=== PATIENT | male | born 1980 | race Caucasian/White ===

== ENCOUNTER 2021-07-12 17:38 | Outpatient (REF) | payer BC, SELFPAY ==
[2021-07-14 16:39] LABS: COVID-19 RT-PCR UVMMC Result Positive (Negative)
== END 2021-07-12 17:39 | disposition home or self-care (01) ==
LOC: NCHCN 17:38
PROVIDERS: PCP Nurse Practitioner; Visit Provider Registered Nurse
DX: Z20.822 Contact with and (suspected) exposure to COVID-19 (principal); J06.9 Acute upper respiratory infection, unspecified
CPT/HCPCS: U0003

== ENCOUNTER 2021-08-23 16:53 | Outpatient (REF) | payer BC, SELFPAY ==
[2021-08-23 14:18] LABS: HCT 43.2 % (40.0-50.0); HGB 14.8 g/dL (13.5-17.5); MCH 31.2 pg (27.0-33.0); MCHC 34.3 % (32.0-36.0); MCV 90.9 fL (80-95); MPV 10.3 fL (8.0-11.0); Platelet Count 238 10^3/uL (130-400); RBC 4.75 10^6/uL (4.36-5.78); RDW 12.3 % (11.8-14.1); RDW-SD 40.9 fL; WBC 7.49 10^3/uL (4.4-10.8)
[2021-08-23 14:29] LABS: ALT 25 U/L (16-63); Albumin 4.1 g/dL (3.4-5.0); Alkaline Phosphatase 91 U/L (46-116); Anion Gap 9.9 mmol/L (3-11); BUN 15 mg/dL (7-18); Bilirubin, Total 0.3 mg/dL (0.2-1.0); CO2 26.1 mmol/L (21.0-32.0); CREATININE 0.9 mg/dL (0.70-1.30); Calcium 8.4 mg/dL (8.5-10.1); Chloride 103 mmol/L (98-107); Cholesterol 186 mg/dL (<200); Glucose 145 mg/dL (74-106); HDL Cholesterol 30 mg/dL (40-60); Sodium 139 mmol/L (136-145); Total Protein 7.3 g/dL (6.4-8.2); Triglyceride 474 mg/dL (<150)
[2021-08-23 14:40] LABS: LDL CHOLESTEROL 112 mg/dL (<100)
[2021-08-23 14:50] LABS: AST 15 U/L (15-37)
== END 2021-08-23 16:54 | disposition home or self-care (01) ==
LOC: NCHCN 16:53
PROVIDERS: PCP Nurse Practitioner; Visit Provider Registered Nurse
DX: R63.5 Abnormal weight gain (principal); R10.13 Epigastric pain; R07.89 Other chest pain; Z72.89 Other problems related to lifestyle
CPT/HCPCS: 80053; 80061; 83721; 85027

== ENCOUNTER 2021-09-19 10:33 | Outpatient (REF) | payer BC, SELFPAY ==
[2021-09-19 18:06] LABS: Calcium 9.8 mg/dL (8.5-10.1)
[2021-09-23 11:37] LABS: Parathyroid Hormone,Intact 26 pg/mL (19-88)
== END 2021-09-19 10:34 | disposition home or self-care (01) ==
LOC: NCHCN 10:33
PROVIDERS: PCP Nurse Practitioner; Visit Provider Registered Nurse
DX: E83.51 Hypocalcemia (principal)
CPT/HCPCS: 82310; 83970

== ENCOUNTER 2022-03-12 17:57 | Outpatient (REF) | payer BC, SELFPAY ==
[2022-03-12 21:40] LABS: HCT 44.6 % (40.0-50.0); HGB 15.7 g/dL (13.5-17.5); MCH 31.3 pg (27.0-33.0); MCHC 35.2 % (32.0-36.0); MCV 89 fL (80-95); MPV 10.1 fL (8.0-11.0); Platelet Count 218 10^3/uL (130-400); RBC 5.01 10^6/uL (4.36-5.78); RDW 11.9 % (11.8-14.1); RDW-SD 38.6 fL; WBC 9.46 10^3/uL (4.4-10.8)
[2022-03-12 21:48] LABS: ALT 25 U/L (16-63); AST 16 U/L (15-37); Albumin 4.1 g/dL (3.4-5.0); Alkaline Phosphatase 67 U/L (46-116); BUN 11 mg/dL (7-18); Bilirubin, Total 0.4 mg/dL (0.2-1.0); CREATININE 0.8 mg/dL (0.70-1.30); Calcium 9.4 mg/dL (8.5-10.1); Chloride 101 mmol/L (98-107); Estimated GFR 114.02 (mL/min/1.73m2); Glucose 92 mg/dL (74-106); Potassium 3.5 mmol/L (3.5-5.1); Sodium 139 mmol/L (136-145)
[2022-03-14 15:39] LABS: Chlamydia Result Negative (Negative); GC Result Negative (Negative)
== END 2022-03-12 17:58 | disposition home or self-care (01) ==
LOC: NCHCN 17:57
PROVIDERS: PCP Nurse Practitioner; Visit Provider Nurse Practitioner Family
DX: Z11.3 Encounter for screening for infections with a predominantly sexual mode of transmission (principal); R10.2 Pelvic and perineal pain
CPT/HCPCS: 80053; 85027; 87491; 87591; 87086

== ENCOUNTER 2023-03-12 09:19 | Outpatient (REF) | payer BC, SELFPAY ==
[2023-03-12 14:35] LABS: MCH 31.4 pg (27.0-33.0); MCHC 34.9 % (32.0-36.0); MCV 90 fL (80-95); MPV 10.3 fL (8.0-11.0); Platelet Count 227 10^3/uL (130-400); RBC 4.78 10^6/uL (4.36-5.78); RDW 11.8 % (11.8-14.1); RDW-SD 38.8 fL; WBC 7.18 10^3/uL (4.4-10.8)
[2023-03-12 14:47] LABS: ALT 31 U/L (16-63); AST 17 U/L (15-37); Albumin 4.2 g/dL (3.4-5.0); Alkaline Phosphatase 73 U/L (46-116); Anion Gap 9.9 mmol/L (3-11); BUN 13 mg/dL (7-18); Bilirubin, Total 0.4 mg/dL (0.2-1.0); CO2 26.1 mmol/L (21.0-32.0); CREATININE 0.9 mg/dL (0.70-1.30); Calcium 9.6 mg/dL (8.5-10.1); Chloride 100 mmol/L (98-107); Cholesterol 209 mg/dL (<200); Estimated GFR 109.36 (mL/min/1.73m2); Glucose 111 mg/dL (74-106); HDL Cholesterol 35 mg/dL (40-60); Potassium 3.8 mmol/L (3.5-5.1); Sodium 136 mmol/L (136-145); TSH (W/Ref FT4) 0.64 uIU/mL (0.36-3.74); Total Protein 7.9 g/dL (6.4-8.2); Triglyceride 403 mg/dL (<150)
[2023-03-12 14:56] LABS: Hemoglobin A1C 5.5 % (<5.7)
[2023-03-12 14:59] LABS: LDL CHOLESTEROL 108 mg/dL (<100)
== END 2023-03-12 09:20 | disposition home or self-care (01) ==
LOC: NCHCN 09:19
PROVIDERS: PCP Nurse Practitioner; Visit Provider Family Medicine
DX: Z00.00 Encounter for general adult medical examination without abnormal findings (principal); E78.5 Hyperlipidemia, unspecified; E66.9 Obesity, unspecified; R53.83 Other fatigue; R63.5 Abnormal weight gain; Z80.8 Family history of malignant neoplasm of other organs or systems; Z13.29 Encounter for screening for other suspected endocrine disorder; Z72.89 Other problems related to lifestyle; Z13.1 Encounter for screening for diabetes mellitus
CPT/HCPCS: 80053; 80061; 83721; 85027; 83036; 84443

== ENCOUNTER 2025-04-06 16:49 | Outpatient (REF) | payer BC, SELFPAY ==
[2025-04-06 18:42] LABS: Hemoglobin A1C 5.7 % (<5.7)
[2025-04-06 18:45] LABS: ALT 34 U/L (16-63); AST 25 U/L (15-37); Albumin 4.3 g/dL (3.4-5.0); Alkaline Phosphatase 68 U/L (46-116); Anion Gap 11.5 mmol/L (3-11); BUN 13 mg/dL (7-18); Bilirubin, Total 0.6 mg/dL (0.2-1.0); CO2 28.5 mmol/L (21.0-32.0); Calcium 9.7 mg/dL (8.5-10.1); Chloride 100 mmol/L (98-107); Cholesterol 197 mg/dL (<200); Glucose 104 mg/dL (74-106); HDL Cholesterol 37 mg/dL (>or=40); Potassium 4.0 mmol/L (3.5-5.1); Sodium 140 mmol/L (136-145); TSH 0.86 uIU/mL (0.36-3.74); Total Protein 8.0 g/dL (6.4-8.2)
== END 2025-04-06 16:50 | disposition home or self-care (01) ==
LOC: NCHCN 16:49
PROVIDERS: PCP Nurse Practitioner; Visit Provider Family Medicine
DX: E66.9 Obesity, unspecified (principal); R60.0 Localized edema; E78.5 Hyperlipidemia, unspecified
CPT/HCPCS: 80053; 80061; 83036; 84439; 84443

== ENCOUNTER 2025-05-24 10:51 | Outpatient (REF) | payer BC, SELFPAY ==
[2025-05-24 15:33] LABS: Vitamin D 25 Total 33 ng/mL (30-100)
[2025-05-24 15:35] LABS: Vitamin B12 887 pg/mL (211-911)
[2025-05-24 15:46] LABS: Folate > 24.0 ng/mL (>5.38)
== END 2025-05-24 10:52 | disposition home or self-care (01) ==
LOC: NCHCN 10:51
PROVIDERS: PCP Nurse Practitioner; Visit Provider Family Medicine
DX: R53.83 Other fatigue (principal)
CPT/HCPCS: 82306; 82607; 82746